=== PATIENT | male | born 1955 | race Caucasian/White ===

== ENCOUNTER 2023-07-28 11:15 | Emergency (ER) | payer MEDICARE, OTHER, SELFPAY ==
[2023-07-28 11:35] VITALS: BP 161/96
--- NOTE | 2023-07-28 12:02 | ED.MUSCINJ ---
HPI-Injury
General
Chief Complaint: Musculo-Skeletal Complaint
Source: patient
Exam Limitations: none
Time Seen by Provider: 07/28/23 11:43
Nursing documentation reviewed up to this point in time: agreed with
Travel History
Have you had any contact with someone who has COVID-19?: No
Do you have any symptoms of coronavirus? Fever > 100 degrees, chills, cough, shortness of breath, sore throat, loss of taste or smell, muscle aches, or headache?: No
History of Present Illness-Injury
Initial Injury comments:
67-year-old male with history of HTN, HLD, DE, anxiety/depression, right knee ACL repair presents stating yesterday he leaned over to pick something up and experienced a sudden sharp pain from his knee down to his ankle. He was able to ambulate
afterwards with some discomfort. He awakened this morning with significant swelling of the right knee and pain 5/10 at rest and 9/10 with movement or weightbearing.
Past History
Past History
ED Past Medical History: HTN, Hypercholesterolemia and DE
ED Past Surgical History: Orthopedic
Social History
Tobacco: Former smoker
Alcohol: Occasional
Drug: None
Personal:
Living: with family
Employment: Retired
Review of Systems
Review of Systems
Allergies reviewed?: Yes
All Other Systems: ROS reviewed and negative except as documented in HPI and ROS
Constitutional: Denies fever
Musculoskeletal: Reports other (Pain and swelling right knee)
Musculoskeletal Injury Exam
Musculoskeletal Injury Exam
Right Knee:
Pain with Movement?: Moderate
Tender to palpation?: Moderate
Soft tissue swelling?: Moderate
Joint effusion?: Moderate
Joint instability?: No
Malalignment/deformity?: No
Range of motion: Full
Distal skin color and temperature: normal-warm & good color
Capillary Refill: normal
Normal distal neurovascular exam?: Yes
Phy Exam
Physical Exam
Physical Exam:
PHYSICAL EXAMINATION:
General: no apparent distress, not acutely ill
Neuro: alert and oriented.
Psychiatric: well kept. interactive and cooperative
Musculoskeletal: Moves with ease
Skin: Warm, pink.
Injury Course
Orders/Labs/Results
Orders:
Orders
07/28/23 11:37
Knee, Right 4 or More Views [CR Knee- Right 4 Or More View*] Urgent
Comment:
Reason For Exam: pain
07/28/23 12:57
Knee Immobilizer Right-Treatme ONCE
Procedures
Incision/Drainage/Joint Aspiration
Right Knee:
Anethesia: 1% Lidocaine
Preparation: cleaned with alcohol wipe
Type of procedure: aspiration
Nature of site: other (Suprapatellar effusion)
How much fluid was obtained?: number in mls (110 mL)
Fluid description: serosanguinous
Treatment: bandaid applied
MDM/Problems Addressed
Differential Diagnosis Includes:
Fracture, ACL tear, meniscus tear, sprain, effusion
MDM/Problems Addressed:
67-year-old male with history of HTN, HLD, DE, anxiety/depression, right knee ACL repair presents stating yesterday he leaned over to pick something up and experienced a sudden sharp pain from his knee down to his ankle. He was able to ambulate
afterwards with some discomfort. He awakened this morning with significant swelling of the right knee and pain 5/10 at rest and 9/10 with movement or weightbearing.
The radiology report read: IMPRESSION:
Degenerative changes.
No findings to confirm recent cortical fracture.
At least moderate size suprapatellar effusion.
12:54 PM
Knee aspirated for 110 mL of yellowish blood-tinged but clear fluid with much relief of the pain. Obvious traumatic effusion, no need for fluid testing.
Knee immobilizer applied. Distal neurovascular intact.
Patient referred to orthopedics.
*Critical Care Note
Total Time (30-74mins, 75-104mins- exclusive of procedures): Not Applicable
ED Attending Note
-
Portions of this chart may have been created with voice recognition software.� Occasional wrong word or��sound alike� substitutions may have occurred due to the inherent limitations of voice recognition software.
Discharge Plan
Departure
Patient Disposition: Home (Routine Discharge)
Date of Disposition: 07/28/23
Time of Disposition: 12:57
Patient with high blood pressure during this ER visit?: No
Condition: Good
Discharge Problem:
Injury of right knee, Suprapatellar effusion of knee
Instructions: Knee Immobilizer (DC), Swollen Joints (DC), Using Cold for Pain
Prescriptions:
No Action
alprazolam 0.5 MG tablet
0.5 mg PO TIDPRN PRN (Reason: anxiety)
Patient Comments:
09/27/2020: last filled 09/15/18, 30 tabs for 10 days from [facility]
citalopram 20 MG tablet
20 mg PO DAILY
carbidopa-levodopa 1 TABLET tablet
1 tab PO DAILY
atorvastatin 80 MG tablet
80 mg PO QPM Qty: 90 3RF
carvedilol 6.25 MG tablet
6.25 mg PO BID Qty: 180 3RF
aspirin 81 MG tablet,chewable
81 mg PO DAILY Qty: 90 3RF
lisinopril 2.5 MG tablet
2.5 mg PO DAILY Qty: 90 3RF
ticagrelor [Brilinta] 90 MG tablet
90 mg PO BID Qty: 180 3RF
varenicline [Chantix Starting ] 1 DOSE-PACK tablets,dose pack
1 dose PO DIRECTED Qty: 1 0RF
Rx Instructions:
Hand written prescription for Chantix starting
Referrals:
Daniel Watkins MD [Active] - Next open appointment
Chauncey Freed MD [Family Provider] -
Activity Restrictions/Additional Instructions:
As we discussed, call the orthopedic doctors office today and make next available appointment.
Keep the knee immobilizer on at all times when up and around until further instructed by the orthopedic doctor.
Tylenol or ibuprofen as needed for pain
I drained 110 mL of fluid from your knee
Cold compress 20 minutes off and on today and tomorrow
Interventions
Interventions:
*Risk Screen - Suicide Last Done: 07/28/23 11:35
*General Assessment Last Done: 07/28/23 11:35
*Neglect/Abuse Screening Last Done: 07/28/23 11:35
*ED COVID-19 Vaccine History Last Done: 07/28/23 11:35
*Nursing Disposition Last Done: 07/28/23 13:20
ED-Musculoskeletal Assessment Last Done: 07/28/23 11:49
Discharge Date and Time
Discharge Date/Time: 07/28/23 13:21
Print Language: INDONESIAN
== END 2023-07-28 13:21 | disposition home or self-care (01) ==
LOC: EMR 11:15
PROVIDERS: EMERGENCY PHYSICIAN Student in an Organized Health Care Education/Training Program; FAMILY PHYSICIAN Family Medicine
DX: S89.91XA Unspecified injury of right lower leg, initial encounter (principal); M25.461 Effusion, right knee; X58.XXXA Exposure to other specified factors, initial encounter; I10 Essential (primary) hypertension; E78.00 Pure hypercholesterolemia, unspecified; I25.2 Old myocardial infarction; F41.8 Other specified anxiety disorders; Z87.891 Personal history of nicotine dependence
CPT/HCPCS: 99284; 20610; 73564

== ENCOUNTER → 2023-09-30 12:51 | Outpatient (REF) | payer MEDICARE, OTHER, SELFPAY | LOC: HWRCS 12:51 | PROVIDERS: ATTENDING PHYSICIAN Internal Medicine Cardiovascular Disease; FAMILY PHYSICIAN Family Medicine | DX: Z01.810 Encounter for preprocedural cardiovascular examination (principal); I25.10 Atherosclerotic heart disease of native coronary artery without angina pectoris; Z13.6 Encounter for screening for cardiovascular disorders | CPT/HCPCS: 93306 ==

== ENCOUNTER → 2024-08-27 08:16 | Outpatient (REF) | payer MEDICARE, OTHER, SELFPAY ==
[2024-08-27 10:18] LABS: Body Fluid Mononuclear 5.6 %; Body Fluid Polymorphonuclear 94.4 %; Body Fluid WBC 34940 /CUMM
[2024-08-27 10:33] LABS: Body Fluid Second Tech SS
== END ==
LOC: CLAB 08:16
PROVIDERS: ATTENDING PHYSICIAN Orthopaedic Surgery Sports Medicine
DX: M16.12 Unilateral primary osteoarthritis, left hip (principal)
CPT/HCPCS: 87015; 87070; 87075; 87102; 87116; 87205; 89051

== ENCOUNTER → 2025-02-25 11:12 | Outpatient (REF) | payer MEDICARE, OTHER, SELFPAY | LOC: HWRAD 11:12 | PROVIDERS: ATTENDING PHYSICIAN Family Medicine | DX: Z87.891 Personal history of nicotine dependence (principal) | CPT/HCPCS: 71271 ==